=== PATIENT | female | born 1970 | race African-American/Black ===

== ENCOUNTER 2018-10-31 09:26 | Outpatient (CLI) | payer OTHER | END 2018-10-31 09:27 | disposition home or self-care (01) | LOC: BICMAMMO 09:26 | PROVIDERS: ATTEND Physician Assistant | DX: N64.4 Mastodynia (principal); R92.1 Mammographic calcification found on diagnostic imaging of breast | CPT/HCPCS: 77066; G0279 ==

== ENCOUNTER 2021-07-06 19:07 | Emergency (ER) | payer OTHER | END 2021-07-06 20:35 | disposition home or self-care (01) | LOC: ERS 19:07 | DX: S93.492A Sprain of other ligament of left ankle, initial encounter (principal); K21.9 Gastro-esophageal reflux disease without esophagitis; J45.909 Unspecified asthma, uncomplicated; I10 Essential (primary) hypertension; E55.9 Vitamin D deficiency, unspecified; X50.1XXA Overexertion from prolonged static or awkward postures, initial encounter; Z79.899 Other long term (current) drug therapy ==